=== PATIENT | female | born 1960 | race Caucasian/White ===

== ENCOUNTER 2021-08-04 15:15 | Emergency (ER) | payer OTHER ==
--- NOTE | 2021-08-04 17:11 | EDM.PDOC ---
ED HPI GENERAL MEDICAL PROBLEM - General Chief Complaint: Cardiovascular Problem Stated Complaint: HIGH BLOOD PRESSURE Time Seen by Provider: 08/04/21 17:10 - History of Present Illness INITIAL COMMENTS - FREE TEXT/NARRATIVE: 61-year-old female presents the emergency room with what she thinks is elevated high blood pressure. The patient has had some vision changes and some hearing changes. In the past when the patient was stressed she would develop tunnel vision and she would lose her hearing but his distress improved her hearing and vision improved. Patient has not been abnormally stressed but she can feel a bounding pulse when she has these episodes. 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 She has not had associated chest pain breathing difficulties or shortness of breath. She has had the Covid vaccine including a booster. Patient has not seen a physician in approximately 30 years. She has felt well prior to the last couple of days when all this started. The patient has chronic allergic rhinitis type symptoms but this is actually different. - Related Data Allergies Allergy/AdvReac Type Severity Reaction Status Date / Time No Known Allergies Allergy Verified 08/04/21 16:34 Home Meds: Home Meds Cranberry 1 tab PO DAILY 08/04/21 [History] Garlic 1 tab PO DAILY 08/04/21 [History] Multivitamin 1 tab PO DAILY 08/04/21 [History] Past Medical History HEENT History: Reports: Impaired Vision Respiratory History: Reports: Asthma - Past Surgical History Musculoskeletal Surgical History: Reports: Other (See Below) Other Musculoskeletal Surgeries/Procedures:: fractured arm a few times, fractured foot Social & Family History - Family History Family Medical History: No Pertinent Family History - Tobacco Use Tobacco Use Status *Q: Never Tobacco User Second Hand Smoke Exposure: No - Caffeine Use Caffeine Use: Reports: Coffee - Recreational Drug Use Recreational Drug Use: No ED ROS GENERAL - Review of Systems Review Of Systems: See Below Constitutional: Reports: No Symptoms HEENT: Reports: Hearing Loss, Vision Change. Denies: Vertigo Respiratory: Reports: No Symptoms Cardiovascular: Reports: Blood Pressure Problem. Denies: Chest Pain Endocrine: Reports: No Symptoms GI/Abdominal: Reports: No Symptoms : Reports: No Symptoms Musculoskeletal: Reports: No Symptoms Neurological: Reports: No Symptoms Psychiatric: Reports: No Symptoms Hematologic/Lymphatic: Reports: No Symptoms ED EXAM, GENERAL - Physical Exam Exam: See Below Exam Limited By: No Limitations General Appearance: Alert, No Apparent Distress Eye Exam: Bilateral Eye: Normal Inspection, PERRL Ears: Normal External Exam, Normal Canal, Hearing Grossly Normal, Normal TMs Nose: Normal Inspection, Normal Mucosa, No Blood Throat/Mouth: Normal Inspection, Normal Lips, Normal Teeth, Normal Gums, Normal Oropharynx, Normal Voice, No Airway Compromise Head: Atraumatic, Normocephalic Neck: Normal Inspection, Supple, Non-Tender, Full Range of Motion. No: Lymphadenopathy (L), Lymphadenopathy (R) Respiratory/Chest: No Respiratory Distress, Lungs Clear, Normal Breath Sounds Cardiovascular: Regular Rate, Rhythm, No Edema, No Murmur GI/Abdominal: Normal Bowel Sounds, Soft, Non-Tender Back Exam: Normal Inspection. No: CVA Tenderness (L), CVA Tenderness (R) Extremities: Normal Inspection, No Pedal Edema Neurological: Alert, Oriented, Normal Cognition #1 Interpretation EKG Date: 08/04/21 Rhythm: NSR Rate (Beats/Min): 71 [place]: Normal P-Wave: Present QRS: Normal ST-T: Normal QT: Normal Comparison: NA - No Prior EKG EKG Interpretation Comments: Artifact present otherwise normal EKG Course - Vital Signs Last Recorded V/S: Last Vital Signs Temp 36.7 C 08/04/21 16:31 Pulse 71 08/04/21 16:31 Resp 18 08/04/21 16:31 BP 172/113 H 08/04/21 16:31 Pulse Ox 96 08/04/21 16:31 - Orders/Labs/Meds Orders: Active Orders 24 hr Category Date Time Status Vaccine to be Administered/Admin Charge [RC] ASDIRECTED Care 08/04/21 16:45 Active Head wo Cont [CT] Stat Exams 08/04/21 17:29 Taken CORONAVIRUS COVID-19 NATALEE [MOLEC] Stat Lab 08/04/21 18:28 Received EKG 12 Lead [EK] Stat Ther 08/04/21 18:28 Ordered Labs: Laboratory Tests 08/04/21 08/04/21 Range/Units 18:15 18:15 WBC 6.23 (3.98-10.04) K/mm3 RBC 4.47 (3.98-5.22) M/mm3 Hgb 13.3 (11.2-15.7) gm/dl Hct 40.4 (34.1-44.9) % MCV 90.4 (79.4-94.8) fl MCH 29.8 (25.6-32.2) pg MCHC 32.9 (32.2-35.5) g/dl RDW Std Deviation 43.6 (36.4-46.3) fL Plt Count 269 (182-369) K/mm3 MPV 8.4 L (9.4-12.3) fl Neut % (Auto) 62.3 (34.0-71.1) % Lymph % (Auto) 26.2 (19.3-51.7) % [place] % (Auto) 7.5 (4.7-12.5) % Eos % (Auto) 2.7 (0.7-5.8) Baso % (Auto) 1.1 (0.1-1.2) % Neut # (Auto) 3.88 (1.56-6.13) K/mm3 Lymph # (Auto) 1.63 (1.18-3.74) K/mm3 [place] # (Auto) 0.47 H (0.24-0.36) K/mm3 Eos # (Auto) 0.17 (0.04-0.36) K/mm3 Baso # (Auto) 0.07 (0.01-0.08) K/mm3 Sodium 142 (136-145) mEq/L Potassium 4.2 (3.5-5.1) mEq/L Chloride 109 H (98-107) mEq/L Carbon Dioxide 27 (21-32) mEq/L Anion Gap 10.2 (5-15) BUN 17 (7-18) mg/dL Creatinine 0.8 (0.55-1.02) mg/dL Est Cr Clr Drug Dosing TNP Estimated GFR (MDRD) > 60 (>60) mL/min BUN/Creatinine Ratio 21.3 H (14-18) Glucose 105 H (70-99) mg/dL Calcium 9.0 (8.5-10.1) mg/dL Total Bilirubin 0.4 (0.2-1.0) mg/dL AST 19 (15-37) U/L ALT 31 (14-59) U/L Alkaline Phosphatase 112 (46-116) U/L Troponin I < 0.017 (0.00-0.056) ng/mL Total Protein 6.9 (6.4-8.2) g/dl Albumin 3.8 (3.4-5.0) g/dl Globulin 3.1 gm/dL Albumin/Globulin Ratio 1.2 (1-2) Meds: Medications Discontinued Medications Generic Name Dose Route Start Last Admin Trade Name Jonyq PRN Reason Stop Dose Admin Influenza Virus Vaccine 60 mcg 08/04/21 17:15 Flu Vacc [id number] 36mos Up/Pf 60 Mcg/0.5 Ml Syringe IM 08/04/21 17:16 .ONCE ONE Departure - Departure Time of Disposition: 19:32 Disposition: Home, Self-Care 01 Clinical Impression: Hypertension Referrals: PCP,None [Primary Care Provider] - Forms: ED Department Discharge Additional Instructions: Return to the emergency room with any questions problems or worsening symptoms. Establish this next week at the hospital clinic. Their phone number is [phone]. Establish with one of the providers they can keep a very close eye on your blood pressure and start therapy if indeed needed. Sepsis Event Note (ED) - Evaluation Sepsis Screening Result: No Definite Risk - Focused Exam Vital Signs: Vital Signs Temp Pulse Resp BP Pulse Ox 08/04/21 16:31 36.7 C 71 18 172/113 H 96 - My Orders Last 24 Hours: My Active Orders 08/04/21 16:45 Vaccine to be Administered/Admin Charge [RC] ASDIRECTED 08/04/21 17:29 Head wo Cont [CT] Stat 08/04/21 18:28 CORONAVIRUS COVID-19 NATALEE [MOLEC] Stat EKG 12 Lead [EK] Stat - Assessment/Plan Last 24 Hours: My Active Orders 08/04/21 16:45 Vaccine to be Administered/Admin Charge [RC] ASDIRECTED 08/04/21 17:29 Head wo Cont [CT] Stat 08/04/21 18:28 CORONAVIRUS COVID-19 NATALEE [MOLEC] Stat EKG 12 Lead [EK] Stat
[2021-08-04] MEDS ORDERED: FLU Vacc QS2021-22 36MOS UP/PF 60 MCG/0.5 ML Syringe IM ONE (17:15)
--- NOTE | 2021-08-04 19:33 | CT ---
Head CT Technique: Multiple axial sections through the brain were obtained. Intravenous contrast was not utilized. Reconstructed coronal and sagittal images were obtained. Comparison: No prior intracranial imaging is available. Findings: Ventricles along with basal cisterns and sulci over the convexities are within normal limits for the patient's age. No abnormal parenchymal densities are seen. No evidence of intracranial hemorrhage or mass-effect is seen. Mild basal ganglia calcification is noted. Bone window settings were reviewed. Mild calcification is seen within the carotid siphon. Visualized mastoid sinuses and paranasal sinuses show nothing acute. No acute calvarial abnormality is seen. Impression: 1. Nothing acute is seen on noncontrast head CT study. 2. Other incidental findings as noted above. Diagnostic code #2 I agree with preliminary report from [facility], finalized on 08/04/21, 7:23 PM CDT, code 1
== END 2021-08-04 19:57 | disposition home or self-care (01) ==
LOC: JD.ED 15:15
DX: I10 Essential (primary) hypertension (principal); Z20.822 Contact with and (suspected) exposure to COVID-19; Z23 Encounter for immunization
CPT/HCPCS: 36415; 70450; 70450-26; 80053; 84484; 85025; 90686; 93005; 99284-25; G0008; U0002

== ENCOUNTER 2021-08-14 22:27 | Emergency (ER) | payer OTHER ==
[2021-08-14] MEDS ORDERED: Sodium Chloride 0.9% 10 ML Syringe FLUSH PRN (23:20)
[2021-08-14] MEDS ORDERED: hydrALAZINE 20 MG/ML SDV IVPUSH ONE (23:21)
[2021-08-15] MEDS ORDERED: Ondansetron 4 MG/2 ML SDV IVPUSH ONE (00:01)
--- NOTE | 2021-08-15 00:38 | EDM.PDOC ---
ED HPI GENERAL MEDICAL PROBLEM - General Chief Complaint: Cardiovascular Problem Stated Complaint: HIGH BP Time Seen by Provider: 08/14/21 22:42 Source of Information: Reports: Patient History Limitations: Reports: No Limitations - History of Present Illness INITIAL COMMENTS - FREE TEXT/NARRATIVE: The patient presents with hypertension. She was recently diagnosed with hypertension a couple weeks ago. She was put on cozaar 12.5mg daily. She took her blood pressure tonight and it was 207 systolic. She took another dose and that did not help. She had some blurry vision but no chest pain, shortness of breath or headache. She has no numbness or weakness. She has no fever, chills, or cough. Onset: Gradual Duration: Hour(s): Improves with: Reports: None Worsens with: Reports: None Associated Symptoms: Reports: No Other Symptoms Treatments MANAGER HVAC: Reports: Other Medication(s) Other Treatments MANAGER HVAC: Cozaar - Related Data Allergies Allergy/AdvReac Type Severity Reaction Status Date / Time No Known Allergies Allergy Verified 08/14/21 22:47 Home Meds: Home Meds Cranberry 1 tab PO DAILY 08/04/21 [History] Garlic 1 tab PO DAILY 08/04/21 [History] Multivitamin 1 tab PO DAILY 08/04/21 [History] Losartan [Cozaar] 12.5 mg PO DAILY 08/14/21 [History] Past Medical History HEENT History: Reports: Impaired Vision Other HEENT History: glasses Cardiovascular History: Reports: Hypertension Respiratory History: Reports: Asthma Gastrointestinal History: Reports: None Genitourinary History: Reports: None Other Genitourinary History: Pt reports "a little pain with urination and some frequency and urgency" 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: Musculoskeletal History: Reports: Fracture Neurological History: Reports: None Psychiatric History: Reports: None Endocrine/Metabolic History: Reports: None Hematologic History: Reports: None Immunologic History: Reports: None Oncologic (Cancer) History: Reports: None Dermatologic History: Reports: None - Infectious Disease History Infectious Disease History: Reports: Chicken Pox - Past Surgical History Head Surgeries/Procedures: Reports: None HEENT Surgical History: Reports: None Female Surgical History: Reports: None Musculoskeletal Surgical History: Reports: Other (See Below) Other Musculoskeletal Surgeries/Procedures:: fractured arm a few times, fractured foot Social & Family History - Family History Family Medical History: No Pertinent Family History - Tobacco Use Tobacco Use Status *Q: Never Tobacco User Second Hand Smoke Exposure: No - Caffeine Use Caffeine Use: Reports: Coffee Caffeine Use Comment: two cups daily coffee - Recreational Drug Use Recreational Drug Use: No ED ROS GENERAL - Review of Systems Review Of Systems: See Below Constitutional: Reports: No Symptoms HEENT: Reports: Other (blurry vision that resolved) Respiratory: Reports: No Symptoms Cardiovascular: Reports: No Symptoms Endocrine: Reports: No Symptoms GI/Abdominal: Reports: No Symptoms : Reports: No Symptoms Musculoskeletal: Reports: No Symptoms ED EXAM, GENERAL - Physical Exam Exam: See Below Exam Limited By: No Limitations General Appearance: Alert, No Apparent Distress Ears: Normal External Exam Nose: Normal Inspection Head: Atraumatic, Normocephalic Neck: Normal Inspection Respiratory/Chest: No Respiratory Distress, Lungs Clear, Normal Breath Sounds Cardiovascular: Regular Rate, Rhythm, No Edema, No Murmur GI/Abdominal: Soft, Non-Tender, No Organomegaly, No Mass Back Exam: Normal Inspection Extremities: Normal Inspection Course - Vital Signs Last Recorded V/S: Last Vital Signs Temp 97.6 F 08/14/21 22:35 Pulse 90 08/14/21 22:35 Resp 16 08/14/21 22:35 BP 194/132 H 08/14/21 22:35 Pulse Ox 98 08/14/21 22:35 - Orders/Labs/Meds Orders: Active Orders 24 hr Category Date Time Status Cardiac Monitoring [RC] . DIRECTED Care 08/14/21 23:20 Active Peripheral IV Care [RC] . DIRECTED Care 08/14/21 23:20 Active Sodium Chloride 0.9% [Saline Flush] Med 08/14/21 23:20 Active 10 ml FLUSH ASDIRECTED PRN Peripheral IV Insertion Adult [OM.PC] Stat Oth 08/14/21 23:20 Ordered Medication Orders Sodium Chloride (Sodium Chloride 0.9% 10 Ml Syringe) 10 ml FLUSH ASDIRECTED PRN PRN Reason: Keep Vein Open Last Admin: 08/14/21 23:41 Dose: 10 ml Documented by: GERSON Labs: Laboratory Tests 08/14/21 08/14/21 Range/Units 23:35 23:35 WBC 6.96 (3.98-10.04) K/mm3 RBC 4.39 (3.98-5.22) M/mm3 Hgb 13.1 (11.2-15.7) gm/dl Hct 39.5 (34.1-44.9) % MCV 90.0 (79.4-94.8) fl MCH 29.8 (25.6-32.2) pg MCHC 33.2 (32.2-35.5) g/dl RDW Std Deviation 43.9 (36.4-46.3) fL Plt Count 266 (182-369) K/mm3 MPV 9.0 L (9.4-12.3) fl Neut % (Auto) 51.6 (34.0-71.1) % Lymph % (Auto) 33.6 (19.3-51.7) % [place] % (Auto) 10.1 (4.7-12.5) % Eos % (Auto) 3.7 (0.7-5.8) Baso % (Auto) 0.9 (0.1-1.2) % Neut # (Auto) 3.59 (1.56-6.13) K/mm3 Lymph # (Auto) 2.34 (1.18-3.74) K/mm3 [place] # (Auto) 0.70 H (0.24-0.36) K/mm3 Eos # (Auto) 0.26 (0.04-0.36) K/mm3 Baso # (Auto) 0.06 (0.01-0.08) K/mm3 Sodium 141 (136-145) mEq/L Potassium 4.0 (3.5-5.1) mEq/L Chloride 107 (98-107) mEq/L Carbon Dioxide 26 (21-32) mEq/L Anion Gap 12.0 (5-15) BUN 16 (7-18) mg/dL Creatinine 0.7 (0.55-1.02) mg/dL Est Cr Clr Drug Dosing 72.88 mL/min Estimated GFR (MDRD) > 60 (>60) mL/min BUN/Creatinine Ratio 22.9 H (14-18) Glucose 112 H (70-99) mg/dL Calcium 9.5 (8.5-10.1) mg/dL Total Bilirubin 0.3 (0.2-1.0) mg/dL AST 29 (15-37) U/L ALT 32 (14-59) U/L Alkaline Phosphatase 123 H (46-116) U/L Total Protein 7.0 (6.4-8.2) g/dl Albumin 3.7 (3.4-5.0) g/dl Globulin 3.3 gm/dL Albumin/Globulin Ratio 1.1 (1-2) Meds: Medications Generic Name Dose Route Start Last Admin Trade Name Freq PRN Reason Stop Dose Admin Sodium Chloride 10 ml 08/14/21 23:20 08/14/21 23:41 Sodium Chloride 0.9% 10 Ml Syringe FLUSH 10 ml ASDIRECTED PRN Administration Keep Vein Open Discontinued Medications Generic Name Dose Route Start Last Admin Trade Name Freq PRN Reason Stop Dose Admin Hydralazine HCl 10 mg 08/14/21 23:21 08/14/21 23:41 Hydralazine 20 Mg/Ml Sdv IVPUSH 08/14/21 23:22 10 mg ONETIME ONE Administration Ondansetron HCl 4 mg 08/15/21 00:01 08/15/21 00:20 Ondansetron 4 Mg/2 Ml Sdv IVPUSH 08/15/21 00:02 4 mg ONETIME ONE Administration - Re-Assessments/Exams Free Text/Narrative Re-Assessment/Exam: 08/15/21 00:37 I ordered an IV saline lock, hydralazine 10mg IV and labs. Her CBC and CMP look good. She did get nauseated after getting the hydralazine. I gave her zofran 4mg IV. 08/15/21 00:52 She feels better and her blood pressure has come down. I will discharge her home. I will have her take the full 25mg of cozaar. Departure - Departure Time of Disposition: 00:55 Disposition: Home, Self-Care 01 Condition: Good Clinical Impression: Hypertension Qualifiers: Hypertension type: primary hypertension Qualified Code(s): I10 - Essential (primary) hypertension Referrals: PCP,None [Primary Care Provider] - Tereza Rascon MAKE UP WORKER [Nurse Practitioner] - 1 Week Forms: ED Department Discharge Additional Instructions: Take the full cozaar 25mg daily. Keep checking your blood pressure if you feel symptomatic. If it is above 200 for the top number or 120 for the bottom number please return to be checked. Follow up with Tereza within a week. Sepsis Event Note (ED) - Evaluation Sepsis Screening Result: No Definite Risk - Focused Exam Vital Signs: Vital Signs Temp Pulse Resp BP Pulse Ox 08/14/21 22:35 97.6 F 90 16 194/132 H 98 - My Orders Last 24 Hours: My Active Orders 08/14/21 23:20 Cardiac Monitoring [RC] . DIRECTED Peripheral IV Care [RC] . DIRECTED Sodium Chloride 0.9% [Saline Flush] 10 ml FLUSH ASDIRECTED PRN Peripheral IV Insertion Adult [OM.PC] Stat - Assessment/Plan Last 24 Hours: My Active Orders 08/14/21 23:20 Cardiac Monitoring [RC] . DIRECTED Peripheral IV Care [RC] . DIRECTED Sodium Chloride 0.9% [Saline Flush] 10 ml FLUSH ASDIRECTED PRN Peripheral IV Insertion Adult [OM.PC] Stat
== END 2021-08-15 01:00 | disposition home or self-care (01) ==
LOC: JD.ED 22:27
DX: I10 Essential (primary) hypertension (principal); J45.909 Unspecified asthma, uncomplicated; Z79.899 Other long term (current) drug therapy
CPT/HCPCS: 36415; 80053; 85025; 96374; 96375; 99283; J0360; J2405